=== PATIENT | male | born 1985 | race Caucasian/White ===

== ENCOUNTER 2017-02-20 02:24 | Inpatient (IN) | payer MEDICARE, OTHER ==
[~2017-02-20] VITALS: Ht 182.9 cm; Wt 89.0 kg
[~2017-02-20 02:24] MED LIST: ARIP1TAB12 PO; ARIP400P IM; CHLO100 PO; DEPA250T2 PO; DEPA500T3 PO; DOXE100C4 PO; DOXE25CA2 PO; GEOD80CA PO; PRIL20CA PO; SILV50T TOPICAL; ZYPR20TA PO
[2017-02-20 02:33] VITALS: BP 154/89; PULSE 108; RESP 18; TEMP 98.7; O2SAT 98
[2017-02-20 03:20] LABS: AUTOMATED NEUTROPHIL # 4.6 TH/MM3 (1.8-7.7); BASOPHIL % 0.2 % (0.0-2.0); EOSINOPHIL # 0.2 TH/MM3 (0-0.4); EOSINOPHIL % 2.3 % (0.0-4.0); HEMATOCRIT 31.8 % (39.0-51.0); HEMO FLAGS DIFF FINAL; LYMPH % 36.5 % (9.0-44.0); LYMPHOCYTE # 3.6 TH/MM3 (1.0-4.8); MEAN CELL VOLUME 89.6 FL (80.0-100.0); MEAN CORPUSCULAR HEMOGLOBIN 30.3 PG (27.0-34.0); MEAN CORPUSCULAR HGB CONC 33.8 % (32.0-36.0); MONO % 14.3 % (0.0-8.0); NEUT % 46.7 % (16.0-70.0); PLATELET COUNT 226 TH/MM3 (150-450); RED BLOOD COUNT 3.55 MIL/MM3 (4.50-5.90); RED CELL DISTRIBUTION WIDTH 14.7 % (11.6-17.2); WHITE BLOOD COUNT 9.8 TH/MM3 (4.0-11.0)
[2017-02-20 03:26] LABS: AMPHETAMINE, URINE NEG (NEG); BARBITURATES, URINE NEG (NEG); COCAINE, URINE POS (NEG)
[2017-02-20 03:28] LABS: ANION GAP 7 MEQ/L (5-15); AST (GOT) 38 U/L (15-37); BICARBONATE 25.1 MEQ/L (21.0-32.0); BLOOD UREA NITROGEN 23 MG/DL (7-18); CHLORIDE 112 MEQ/L (98-107); GLOMERULAR FILTRATION RATE 119 ML/MIN (>89); POTASSIUM 3.8 MEQ/L (3.5-5.1); SODIUM (NA) 144 MEQ/L (136-145)
--- NOTE | 2017-02-20 03:31 | PD ---
HPI Chief Complaint: Psychiatric Symptoms Time Seen by Provider: 03:27 Travel History International Travel<30 days: No Contact w/Intl Traveler<30days: No Traveled to known affect area: No History of Present Illness HPI 31-year-old white male presents to emergency department under [place] act by PD. The patient was found wandering out in traffic. The patient was just released 9 days ago from detention. He states that he was admitted for 90 days. He was in [facility]. He states that he has a history of schizoaffective disorder. He has been off his medications. He admits to tobacco, alcohol and drugs. He denies any toxic ingestions. The patient here denies any suicidal homicidal ideation. He states he had moved back to [facility] oriented been living in the past. He just got into town. [facility] Past Medical History Narrative Medical Schizoaffective disorder Anxiety: No Depression: No Cancer: No Cardiovascular Problems: No Diabetes: No Diminished Hearing: No Endocrine: No Genitourinary: No Headaches: No Immune Disorder: No Musculoskeletal: No Neurologic: Yes Psychiatric: Yes (2010 [facility] 10/24/15) Reproductive: No Respiratory: No Schizophrenia: Yes (schizo affective) Seizures: No Tetanus Vaccination: < 5 Years Influenza Vaccination: No Past Surgical History Surgical History: No Previous Surgery Social History Alcohol Use: Yes Tobacco Use: Yes Substance Use: Yes Allergies-Medications (Allergen,Severity, Reaction): Coded Allergies: No Known Allergies (Verified , 02/20/17) Reported Meds & Prescriptions Reported Meds & Active Scripts Active No Active Prescriptions or Reported Medications Review of Systems Except as stated in HPI: all other systems reviewed are Neg General / Constitutional: No: Fever, Chills Eyes: No: Diploplia, Photophobia HENT: No: Headaches, Sore Throat Cardiovascular: No: Chest Pain or Discomfort, Palpitations Respiratory: No: Cough, Shortness of Breath Gastrointestinal: No: Nausea, Vomiting Genitourinary: No: Dysuria, Hematuria Musculoskeletal: No: Myalgias, Arthralgias Skin: No Rash, No Itching Neurologic: No: Headache, Seizures Psychiatric: Positive: Mood Disorder, Substance Abuse, No: Anxiety, Depression , Suicidal Ideations, Disorder of Thought, Homicidal Ideation Physical Exam Narrative GENERAL: Well-nourished, well-developed patient. SKIN: Warm and dry. HEAD: Normocephalic and atraumatic. EYES: No scleral icterus. No injection or drainage. ENT: No nasal drainage noted. Mucous membranes pink. Airway patent. NECK: Supple, trachea midline. Moves head freely without obvious discomfort. CARDIOVASCULAR: Regular rate and rhythm without murmurs, gallops, or rubs. RESPIRATORY: Breath sounds equal bilaterally. No accessory muscle use. GASTROINTESTINAL: Abdomen soft, non-tender, nondistended. EXTREMITIES: No cyanosis or edema. BACK: Nontender without obvious deformity. No CVA tenderness. NEURO: Patient is alert and oriented. no sensorimotor deficits. Nonfocal. Normal speech. PSYCH: No delusions. No auditory or visual hallucinations. Data Data Last Documented VS Vital Signs Date Time Temp Pulse Resp B/P Pulse Ox O2 Delivery O2 Flow Rate FiO2 02/20/17 02:37 20 02/20/17 02:33 98.7 108 154/89 98 Orders Comprehensive Metabolic Panel (02/20/17 02:27) Complete Blood Count With Diff (02/20/17 02:27) Alcohol (Ethanol) (02/20/17 02:27) Drug Screen, Random Urine (02/20/17 02:27) Psych Screen (02/20/17 02:27) Tylenol (Acetaminophen) (02/20/17 02:27) Salicylates (Aspirin) (02/20/17 02:27) Labs Laboratory Tests Test 02/20/17 02:54 White Blood Count 9.8 TH/MM3 Red Blood Count 3.55 MIL/MM3 Hemoglobin 10.8 GM/DL Hematocrit 31.8 % Mean Corpuscular Volume 89.6 FL Mean Corpuscular Hemoglobin 30.3 PG Mean Corpuscular Hemoglobin 33.8 % Concent Red Cell Distribution Width 14.7 % Platelet Count 226 TH/MM3 Mean Platelet Volume 8.0 FL Neutrophils (%) (Auto) 46.7 % Lymphocytes (%) (Auto) 36.5 % Monocytes (%) (Auto) 14.3 % Eosinophils (%) (Auto) 2.3 % Basophils (%) (Auto) 0.2 % Neutrophils # (Auto) 4.6 TH/MM3 Lymphocytes # (Auto) 3.6 TH/MM3 Monocytes # (Auto) 1.4 TH/MM3 Eosinophils # (Auto) 0.2 TH/MM3 Basophils # (Auto) 0.0 TH/MM3 CBC Comment DIFF FINAL Differential Comment Sodium Level 144 MEQ/L Potassium Level 3.8 MEQ/L Chloride Level 112 MEQ/L Carbon Dioxide Level 25.1 MEQ/L Anion Gap 7 MEQ/L Blood Urea Nitrogen 23 MG/DL Creatinine 0.76 MG/DL Estimat Glomerular Filtration 119 ML/MIN Rate Random Glucose 98 MG/DL Calcium Level 9.1 MG/DL Total Bilirubin 0.3 MG/DL Aspartate Amino Transf 38 U/L (AST/SGOT) Alanine Aminotransferase 28 U/L (ALT/SGPT) Alkaline Phosphatase 55 U/L Total Protein 7.1 GM/DL Albumin 4.0 GM/DL Salicylates Level 2.2 MG/DL Urine Opiates Screen NEG Acetaminophen Level LESS THAN 2.0 MCG/ML Urine Barbiturates Screen NEG Urine Amphetamines Screen NEG Urine Benzodiazepines Screen NEG Urine Cocaine Screen POS Urine Cannabinoids Screen POS Ethyl Alcohol Level 3 MG/DL MDM Medical Decision Making Medical Screen Exam Complete: Yes Emergency Medical Condition: Yes Medical Record Reviewed: Yes Interpretation(s) Laboratory Tests Test 02/20/17 02:54 White Blood Count 9.8 TH/MM3 Red Blood Count 3.55 MIL/MM3 Hemoglobin 10.8 GM/DL Hematocrit 31.8 % Mean Corpuscular Volume 89.6 FL Mean Corpuscular Hemoglobin 30.3 PG Mean Corpuscular Hemoglobin 33.8 % Concent Red Cell Distribution Width 14.7 % Platelet Count 226 TH/MM3 Mean Platelet Volume 8.0 FL Neutrophils (%) (Auto) 46.7 % Lymphocytes (%) (Auto) 36.5 % Monocytes (%) (Auto) 14.3 % Eosinophils (%) (Auto) 2.3 % Basophils (%) (Auto) 0.2 % Neutrophils # (Auto) 4.6 TH/MM3 Lymphocytes # (Auto) 3.6 TH/MM3 Monocytes # (Auto) 1.4 TH/MM3 Eosinophils # (Auto) 0.2 TH/MM3 Basophils # (Auto) 0.0 TH/MM3 CBC Comment DIFF FINAL Differential Comment Sodium Level 144 MEQ/L Potassium Level 3.8 MEQ/L Chloride Level 112 MEQ/L Carbon Dioxide Level 25.1 MEQ/L Anion Gap 7 MEQ/L Blood Urea Nitrogen 23 MG/DL Creatinine 0.76 MG/DL Estimat Glomerular Filtration 119 ML/MIN Rate Random Glucose 98 MG/DL Calcium Level 9.1 MG/DL Total Bilirubin 0.3 MG/DL Aspartate Amino Transf 38 U/L (AST/SGOT) Alanine Aminotransferase 28 U/L (ALT/SGPT) Alkaline Phosphatase 55 U/L Total Protein 7.1 GM/DL Albumin 4.0 GM/DL Salicylates Level 2.2 MG/DL Urine Opiates Screen NEG Acetaminophen Level LESS THAN 2.0 MCG/ML Urine Barbiturates Screen NEG Urine Amphetamines Screen NEG Urine Benzodiazepines Screen NEG Urine Cocaine Screen POS Urine Cannabinoids Screen POS Ethyl Alcohol Level 3 MG/DL Differential Diagnosis MDM: High Differential diagnoses: Schizophrenia, schizoaffective disorder, bipolar, anxiety, depression, adjustment reaction, mood disorder NOS, ODD, depressive disorder NOS, dementia, dementia with agitation, psychosis NOS, substance induced mood disorder, intermittent explosive disorder, Asperger syndrome, infection,electrolyte abnormality, malingering. Narrative Course Mental health screening discussed with the patient. Psychiatric screen ordered. The patient is been medically cleared This is schizoaffective disorder, PSA Diagnosis Primary Impression: schizoaffective disorder bipolar type Additional Impression: PSA Scripts No Active Prescriptions or Reported Meds Condition: Anthony Joe Feb 20, 2017 03:31
[2017-02-20 03:34] LABS: ACETAMINOPHEN LESS THAN 2.0 MCG/ML (10.0-30.0); ALKALINE PHOSPHATASE 55 U/L (45-117); ALT (GPT) 28 U/L (12-78); TOTAL BILIRUBIN ADULT 0.3 MG/DL (0.2-1.0)
[2017-02-20 06:26] VITALS: BP 145/88; PULSE 88; RESP 18; TEMP 97.6; O2SAT 98
[2017-02-20] MEDS: REMOVE OLD PATCH T-DERMAL SCH (09:00)
[2017-02-20] MEDS ORDERED: MAGNESIUM HYDROXIDE SUSP 30 ML CUP PO PRN (09:00)
[2017-02-20] MEDS: NICOTINE 21 MG/24 HR PATCH T-DERMAL SCH (09:00)
[2017-02-20] MEDS ORDERED: HALOPERIDOL 5 MG TAB PO PRN (09:00)
[2017-02-20] MEDS: QUEtiapine FUMARATE 100 MG TAB PO SCH ×2 (09:00→20:58)
--- NOTE | 2017-02-20 09:17 | MH ---
cc: DIEGO ORTIZ DATE OF ADMISSION: 02/20/2017 ADMISSION DIAGNOSES 1. Schizoaffective disorder, bipolar type, acute decompensation, F25.0 Rule out component of drug induced psychotic disorder. 2. Polysubstance dependence including cocaine and cannabis, F19.20 LEGAL STATUS: The patient is presently declining voluntary psychiatric admission. Involuntary status. I have initiated a petition and will additionally request health care surrogate and guardian advocate. HISTORY OF PRESENT ILLNESS Mr. Walton is a 31-year-old male with a reported history of schizoaffective disorder who presents to us under a [place] ACT from [facility]'s Office alleging that the patient was found laying and walking in a busy roadway. He advised the officers that he suffers from schizoaffective disorder and had not been taking his medications. Reviewing electronic medical record, I note the patient was admitted under Dr. Wren in October 2015, and he was apparently stabilized on Geodon and Ativan at that time. The patient seen and examined. Chart reviewed. Case discussed with nurse in the J pod. On my examination today, the patient presents with pressured speech. He is quite distractible and impulsive. He is grandiose and mentions for example saying that he has "extraterrestrial IQ." He makes several other grandiose and paranoid statements. He is somewhat medication seeking, in particular for benzodiazepines and says that when he really needs is Seroquel and "yall ain't going to give me this but I need Ativan 2 mg three times a day." He later says that when he really needs is Ativan and cannabis. He has significant loosening of associations. No depressive symptoms noted. He denies audiovisual hallucinations. He denies suicidal or homicidal ideation but it is not clear that he is reliable to contract for safety. The remainder of the psychiatric ROS is negative. PAST PSYCHIATRIC HISTORY Includes a history of schizoaffective disorder and substance use issues. He is not currently under the care of psychiatrist. He was admitted most recently reportedly in 2012, but the patient does have a history here of admission and 2014. He denies a history of suicide attempts. He says that he has done best on Seroquel 300 mg in the morning and 400 mg at bedtime along with the Ativan that he was asking for. FAMILY HISTORY Mother reportedly has bipolar disorder. CHEMICAL DEPENDENCY HISTORY: The patient minimizes his substance use. He insists that all that he does is smoke cannabis and that we would only find "faint signs" of cocaine in his urine. His toxicology was indeed positive for cocaine and cannabinoids. SOCIAL HISTORY The patient lives in [place]. He reports that [facility], reportedly on attempted murder charges and burglary of an unoccupied dwelling, but review of the [facility] [employer] [facility] [employer] does not indicate any such charges, he does have a history of misdemeanor charges. He is reportedly single with two daughters. Denies any history. GED level of education. No reported access to guns or firearms. PAST MEDICAL HISTORY The patient denies any medical issues. REVIEW OF SYSTEMS No reported headache, vision or hearing changes, chest pain, shortness of breath, bowel or bladder issues. No other physical complaints. ROS is somewhat limited because of the patient's degree of psychiatric decompensation. PHYSICAL EXAMINATION VITAL SIGNS: Temperature is 97.6, pulse 88, respirations 18, blood pressure 145/88, pulse oximetry 98% on room air. PSYCHIATRIC EXAM: Physical examination completed by the emergency department provider, on my examination today the patient appears to be in no acute physical distress. No signs of withdrawal noted. No motor abnormalities noted, although the patient is quite psychomotor agitated. LABORATORY Reviewed; CBC is significant for a mild anemia with hemoglobin at 10.8. CMP is significant only for mild transaminitis with an AST of 38. Toxicology positive for cocaine and cannabinoids as I said. Alcohol level undetectable. MENTAL STATUS EXAM The patient is in hospital gown. He is somewhat disheveled but appears to be maintaining basic hygiene. He is awake, alert and oriented to person and hospital at least. No motor abnormalities noted, although the patient is somewhat psychomotor agitated. Speech is pressured and rambling. Language and fund of knowledge were difficult to assess because of his degree of psychiatric impairment. Mood is elevated and affect is expansive. Thought process disorganized with significant loosening of associations. Grandiose delusions are present. Possibly some paranoid delusions. Denies audiovisual hallucinations. Denies suicidal or homicidal ideation, but it is not clear that he is reliable to contract for safety. Insight and judgment presently poor. ASSESSMENT/PLAN This is a 31-year-old male with psychiatric history as detailed above who presents under a [place] ACT. On my examination today, the patient presents as floridly manic with psychotic features in the setting of schizoaffective disorder. He is apparently unmediated. The patient requires psychiatric admission at this time for safety, observation and stabilization. Admit inpatient. Involuntary status. I have completed first opinion. Consult for second opinion. Request health care surrogate and guardian advocate. I will initiate Seroquel for mood stabilization as the patient reports a good history of response to this medication. Haldol as needed for agitation, Atarax as needed for anxiety, Benadryl as needed for sleep or EPS. Vitals every shift. Counselor to see and obtain collateral. Disposition planning. Estimated length of stay: 7-10 days. Diego Stark /8:46 AM /9:07 AM ZULMA
[2017-02-20 10:50] VITALS: BP 129/71; PULSE 91; RESP 18; TEMP 97.6; O2SAT 98
[2017-02-20] MEDS: hydrOXYzine HCL 50 MG TAB PO PRN ×2 (12:15→21:01)
[2017-02-20] MEDS: diphenhydrAMINE HCL 50 MG CAP PO PRN (22:45)
[2017-02-20] MEDS: ACETAMINOPHEN 325 MG TAB PO PRN (22:45)
[2017-02-21] MEDS: diphenhydrAMINE HCL 50 MG/ML VIAL IM PRN (00:12)
[2017-02-21] MEDS: HALOPERIDOL LACTATE 5 MG/ML AMP IM PRN (00:12)
[2017-02-21 05:53] VITALS: BP 134/75; PULSE 90; RESP 17; TEMP 98.3; O2SAT 98
[2017-02-21] MEDS: ACETAMINOPHEN 325 MG TAB PO PRN (05:56)
[2017-02-21 07:39] LABS: ANION GAP 6 MEQ/L (5-15); BICARBONATE 28.9 MEQ/L (21.0-32.0); BLOOD UREA NITROGEN 14 MG/DL (7-18); CHLORIDE 111 MEQ/L (98-107); GLOMERULAR FILTRATION RATE 140 ML/MIN (>89); POTASSIUM 4.3 MEQ/L (3.5-5.1); SODIUM (NA) 146 MEQ/L (136-145)
[2017-02-21 07:41] LABS: HDL CHOLESTEROL 53.1 MG/DL (40.0-60.0); LDL CHOLESTEROL 57 MG/DL (0-99)
[2017-02-21] MEDS: NICOTINE 21 MG/24 HR PATCH T-DERMAL SCH (07:49)
[2017-02-21] MEDS: hydrOXYzine HCL 50 MG TAB PO PRN ×2 (07:49→19:14)
[2017-02-21] MEDS: QUEtiapine FUMARATE 100 MG TAB PO SCH ×2 (07:49→20:16)
[2017-02-21] MEDS: REMOVE OLD PATCH T-DERMAL SCH (09:00)
[2017-02-21 11:22] LABS: HEMOGLOBIN A1b 1.6 %; HEMOGLOBIN Ao 85.5 %; HEMOGLOBIN LA1C 1.8 %; HEMOGLOBIN P3 3.6 %
--- NOTE | 2017-02-21 13:01 | PD.CONS ---
Provisional Diagnosis Admission Date Feb 20, 2017 at 08:42 [place]. Schizoaffective Disorder, Bipolar Type Polysubstance dependence History of Present Illness Service Psychiatry Consult Requested By Psychiatry Reason for Consult 2nd opinion Primary Care Physician Unknown HPI Pt is a 31 YOWM with a hx of schizoaffective disorder bipolar type and polysubstance dependence who was [place] [facility] [place] out by [facility] alleging that pt was found walking into traffic and laying down on a busy roadway. Pt was seen and discussed with event staff member and chart reviewed. Since admission, by has been intrusive and agitated, with very poor impulse control. He has been making sexually inappropriate comments to peers and staff and requires frequent redirection for safety. During interview pt licks lips suggestively towards MD and intrudes on personal space. He is noted to have very pressured speech with FOI. He gives hx of previous psychiatric tx and diagnoses and reports that he has had a good response to seroquel in the past, but states "I'm going to need more because I'm still up there!" He insists on discharge today from hospital but states that he is willing to take medication. RN states that pt has actually improved with today compared to his mental status on admission yesterday. He appears to be responding to internal stimuli and makes paranoid statements about the government. Review of Systems Psychiatric: COMPLAINS OF: Mood changes, Agitation Past Family Social History Coded Allergies: No Known Allergies (Verified , 02/20/17) Past Medical History denies medical problems. Discontinued Reported Medications Omeprazole 20 mg (Prilosec 20 mg)20 Mg Cap20 Mg PO DAILY 04/30/15 Doxepin 100 mg 100 Mg [id number] Mg PO HS 04/30/15 Divalproex Sodium 250 mg (Depakote 250 mg)250 Mg Tab4 Tab PO BID 04/30/15 Olanzapine (Zyprexa)20 Mg Tab20 Mg PO DAILY 04/30/15 Chlorpromazine Hcl (Thorazine 100 Mg Tab)100 Mg [id number] Mg PO TID 04/30/15 Discontinued Scripts Aripiprazole (Abilify Maintena Pre-filled DCS)400 Mg [id number] Mg IM q 28d #1 INJECTION Ref 0 *For intramuscular use only* Prov:Jaden Wren MD 11/11/15 Silver Sulfadiazine (Ssd)50 Applic/50 Gm Cr1 Applic TOPICAL Q12HR #1 TUBE Ref 0 Prov:Jaden Wren MD 11/11/15 Ziprasidone Hcl (Geodon)80 Mg [id number] Mg PO 3 at bedtime #90 CAP Ref 0 Prov:Jaden Wren MD 11/11/15 Aripiprazole 10 Mg Tab10 Mg PO DAILY@08,18 #60 TAB Ref 0 Prov:Jaden Wren MD 11/11/15 Divalproex ER 500 mg (Depakote ER 500 mg)500 Mg Taber1,000 Mg PO BID 5 Days Prov:Cosme Glover MD 04/30/15 Chlorpromazine Hcl (Thorazine 100 Mg Tab)100 Mg [id number] Mg PO TID 5 Days Prov:Cosme Glover MD 04/30/15 Doxepin 25 mg 25 Mg Cap25 Mg PO HS 5 Days Prov:Cosme Glover MD 04/30/15 Olanzapine (Zyprexa)20 Mg Tab20 Mg PO DAILY 5 Days Prov:Cosme Glover MD 04/30/15 Current Medications Medications (Trade) Dose Ordered Sig/Dayanna Route Start Time Stop Time Status Last Admin (Benadryl) 50 mg Q6H PRN PO 02/20/17 09:00 (Benadryl Inj) 50 mg Q6H PRN IM 02/20/17 09:00 02/21/17 00:12 (Benadryl) 50 mg HS PRN PO 02/20/17 09:00 02/20/17 22:45 (Tylenol) 650 mg Q4H PRN PO 02/20/17 09:00 02/21/17 05:56 (Milk Of Magnesia Liq) 30 ml DAILY PRN PO 02/20/17 09:00 (Mag-Al Plus Susp Liq) 30 ml Q6H PRN PO 02/20/17 09:00 (Habitrol 21 Mg Patch.24 Hr) 1 patch DAILY T-DERMAL 02/20/17 09:00 02/21/17 07:49 (Atarax) 50 mg Q6H PRN PO 02/20/17 09:00 02/21/17 07:49 Miscellaneous Information 1 DAILY T-DERMAL 02/20/17 09:00 02/20/17 09:00 (SEROquel) 150 mg Taper BID PO 02/20/17 09:00 03/05/17 08:59 02/21/17 07:49 (Haldol) 5 mg Q6H PRN PO 02/20/17 09:00 02/20/17 09:37 (Haldol Inj) 5 mg Q6H PRN IM 02/20/17 09:00 02/21/17 00:12 Family History denies family hx of psychiatric illness Social History Father of two daughters. Single. Reports released from skilled nursing 9 days ago. Patient's Strengths (min. 2) Agreeable to medication treatment. Verbal Physical Exam Vital Signs Vital Signs Date Time Temp Pulse Resp B/P Pulse Ox O2 Delivery O2 Flow Rate FiO2 02/21/17 05:53 98.3 90 17 134/75 98 02/20/17 06:26 Room Air Mental Status Examination Appearance disheveled Speech: Pressured Orientation: x3 Memory: Unremarkable Thought Process: Flight of Ideas Thought Content: Paranoid, Other (hypersexual) Hallucination Type: Auditory Attention and Concentration: Easily Distracted Suicidal Ideation: No Homicidal Ideation: No Insight: Poor Judgement: Impulsive Affect if Inappropriate: Labile Mood: Manic Motor Activity: Normal gait Assessment & Plan Problem List: (1) schizoaffective disorder bipolar type (2) Polysubstance dependence ICD Code: F19.20 Assessment & Plan I agree that pt meets BA criteria. 2nd opinion paperwork completed. Continue seroquel titration. Estimated LOS: Erica Lara MD Feb 21, 2017 13:01
[2017-02-21 18:32] VITALS: BP 115/69; PULSE 84; RESP 16; TEMP 97.6; O2SAT 98
[2017-02-21] MEDS: ALUMINUM/MAGNESIUM/SIMETH 30 ML CUP PO PRN (19:27)
[2017-02-22] MEDS: hydrOXYzine HCL 50 MG TAB PO PRN ×2 (05:36→19:42)
[2017-02-22 05:56] VITALS: BP 142/85; PULSE 81; RESP 18; O2SAT 96
[2017-02-22] MEDS: diphenhydrAMINE HCL 50 MG/ML VIAL IM PRN ×2 (07:45→17:15)
[2017-02-22] MEDS: HALOPERIDOL LACTATE 5 MG/ML AMP IM PRN (07:45)
[2017-02-22] MEDS: QUEtiapine FUMARATE 100 MG TAB PO SCH (08:43)
[2017-02-22] MEDS: REMOVE OLD PATCH T-DERMAL SCH (08:43)
[2017-02-22] MEDS: NICOTINE 21 MG/24 HR PATCH T-DERMAL SCH (08:44)
[2017-02-22] MEDS ORDERED: ZIPRASIDONE MESYLATE 20 MG VIAL IM STA (10:17)
[2017-02-22] MEDS ORDERED: ZIPRASIDONE MESYLATE 20 MG VIAL IM ONE (10:21)
[2017-02-22] MEDS ORDERED: LORazepam 2 MG/ML VIAL ONE (10:22)
--- NOTE | 2017-02-22 10:44 | HHI.PYPN ---
Subjective Remarks Patient seen and examined. Chart reviewed. Case discussed with nursing staff. Patient was significantly behaviorally disturbed through the remainder of the weekend. He received Haldol PRN this morning. On my examination today, patient is disinhibited, distractible, impulsive, intrusive and demanding. He demands immediate gratification, e.g. for replacing nicotine patch with gum. Disrespectful of staff and peers; I am a "dumb ass cracker." Speech is rambling , pressured. Denies side effects from medications. Shortly after I left the unit, I returned in response to an "all male staff" call in response to this patient. Per RN, patient punched the wall and was pounding on nursing station glass because he did not immediately receive some trifle. He remains at high risk for ongoing violence and requires restraints for safety. I have evaluated him [id number] within 1 hour as required. I have ordered him medicated with Geodon 20mg, Ativan 2mg, Benadryl 50mg IM Stat. I have also checked a Stat XRay of the hand. Call to the RN later: Geodon seems more efficacious than Haldol at controlling patient's agitation. Review of Systems ROS Limitations: Poor Historian Except as stated in HPI: all other systems reviewed are Neg Objective Alert: Yes [place]: Person, Place (at least) Mood: Agitated, Angry Affect: Labile Memory Intact: Comment (Not formally assessed) Hallucinations: Other (Remains int stim) Delusions: Yes Delusion Type: Paranoid Suicidal: Ideation (No SI) Homicidal: Ideation (No HI but aggressive) Insight/Judgement Very poor Remarks No motor abnormalities noted. Thought process disorganized with loosening of associations. Speech rambling. Grooming and hygiene poor. Labs Labs reviewed. Last Impressions Hand X-Ray 02/22/17 0000 Signed Impressions: Service Date/Time: Wednesday, February 22, 2017 11:18 - CONCLUSION: Unremarkable limited examination of the right hand. Jaden Trinh MD Vitals/IOs Vital Signs Date Time Temp Pulse Resp B/P Pulse Ox O2 Delivery O2 Flow Rate FiO2 02/22/17 05:56 81 18 142/85 96 02/21/17 18:32 97.6 02/20/17 06:26 Room Air Assessment & Plan Problem List: (1) Schizoaffective disorder, bipolar type ICD Code: F25.0 (2) Polysubstance dependence ICD Code: F19.20 Assessment & Plan Titrate Seroquel to 300mg BID for psychosis. Given ongoing issues with impulsive aggression and mood instability, I will orally load with Depakote ER 25mg/kg x 85.3kg ~= 2000mg qHS. LFT and Plt ok. Check a level after appropriate interval. D/c restraints once safe to do so. Continue other medications and care as ordered. Justification for Cont. Inpt. Impairment in safety. Impairment in reality construction. Impairment in social function. Medication changes. Very high risk for decompensation pending psychiatric stabilization. Discharge Planning Pending psychiatric stabilization. Diego Portillo MD Feb 22, 2017 10:44
[2017-02-22] MEDS ORDERED: diphenhydrAMINE HCL 50 MG/ML VIAL IM ONE (11:00)
[2017-02-22] MEDS ORDERED: LORazepam 2 MG/ML VIAL IM ONE (11:00)
--- NOTE | 2017-02-22 12:09 | RADRPT ---
EXAM DATE/TIME: 02/22/2017 11:18 [place] COMPARISON: No previous studies available for comparison. INDICATIONS : Right hand pain after punching a window. MEDICAL HISTORY : Schizophrenia SURGICAL HISTORY : None. ENCOUNTER: Initial ACUITY: 1 day PAIN SCORE: Non-responsive. LOCATION: Right hand FINDINGS: Two view examination of the right hand demonstrates no soft tissue swelling, dislocation, or fracture . The joint spaces are maintained. Bony mineralization is normal. CONCLUSION: Unremarkable limited examination of the right hand. Jaden Trinh MD on February 22, 2017 at 12:07 Board Certified Radiologist. This report was verified electronically.
[2017-02-22] MEDS: ZIPRASIDONE MESYLATE 20 MG VIAL IM PRN (17:14)
[2017-02-22 18:00] VITALS: BP 132/74; PULSE 84; RESP 18; TEMP 98.6; O2SAT 99
[2017-02-22] MEDS: QUEtiapine FUMARATE 300 MG TAB PO SCH (20:24)
[2017-02-22] MEDS: DIVALPROEX SODIUM E.R. 500 MG TAB PO SCH (20:24)
[2017-02-22] MEDS: NICOTINE 4 MG/GUM CHEW PRN ×2 (20:53→21:55)
[2017-02-22] MEDS: diphenhydrAMINE HCL 50 MG CAP PO PRN (22:54)
[2017-02-23] MEDS: NICOTINE 4 MG/GUM CHEW PRN ×5 (06:00→20:03)
[2017-02-23 06:07] VITALS: BP 149/87; PULSE 101; RESP 18; TEMP 97.2; O2SAT 95
[2017-02-23] MEDS: hydrOXYzine HCL 50 MG TAB PO PRN ×3 (06:28→22:04)
[2017-02-23] MEDS: QUEtiapine FUMARATE 300 MG TAB PO SCH ×2 (08:34→20:03)
[2017-02-23] MEDS: diphenhydrAMINE HCL 50 MG CAP PO PRN ×3 (08:34→21:10)
[2017-02-23] MEDS ORDERED: QUEtiapine FUMARATE 100 MG TAB PO ONE (10:00)
--- NOTE | 2017-02-23 12:10 | HHI.PYPN ---
Subjective Remarks Patient seen and examined with nurse. Chart reviewed. Patient required a Geodon PRN yesterday afternoon. Case discussed in treatment team with nurse, counselor and occupational therapist. Per nursing staff, patient has poor boundaries, requires immediate gratification, is sexually inappropriate at times and difficult to redirect. I have asked the counselor to try to obtain collateral to determine what patient's baseline level of function is like. On my examination today, patient is intrusive, demanding, and impulsive. Affect is silly and glib. Thought process disorganized and rambling. He has produced a proposed medication list, which includes "Wellbutrin, Ativan, Ser[o]quel, Zyprexa, Haldol and Thorzell [Thorazine]." We discuss his list and settle on adding Thorazine and other med changes as noted below. He says he has done well with "old school" medications like Thorazine. He also produced a series of acrostics, noting that he is a "PIMP," which stands for, "Plug intercom money play." Unclear what this means. Denies side effects from meds. Review of Systems ROS Limitations: Psychotic, Poor Historian Except as stated in HPI: all other systems reviewed are Neg Objective Alert: Yes [place]: Person, Place Mood: Other (Elevated) Affect: Other (silly) Memory Intact: Comment (Not formally assessed) Hallucinations: Other (Internally preoccupied) Delusions: Yes Delusion Type: Grandiose, Paranoid Suicidal: Ideation (No SI) Homicidal: Ideation (No HI) Insight/Judgement Poor Remarks Patient is hyperkinetic but no other motor abnormalities are noted. Thought process disorganized. Speech rambling and pressured. Grooming and hygiene poor. Labs Labs reviewed. No new labs. Vitals/IOs Vital Signs Date Time Temp Pulse Resp B/P Pulse Ox O2 Delivery O2 Flow Rate FiO2 02/23/17 06:07 97.2 101 18 149/87 95 02/20/17 06:26 Room Air Assessment & Plan Problem List: (1) Schizoaffective disorder, bipolar type ICD Code: F25.0 (2) Polysubstance dependence ICD Code: F19.20 Assessment & Plan Add Thorazine per patient preference: 100 mg 3 times daily with plans to titrate to effect and as tolerated. Keep HS Seroquel but discontinue morning dose. We could eventually discontinue the nighttime Seroquel and replace it with additional Thorazine if appropriate. Continue Depakote as ordered. Depakote level ordered. Sexual precautions. Continue to monitor on the high acuity unit. Continue other medications and care as ordered. Justification for Cont. Inpt. Impairment in self-care. Impairment in social functioning. Impairment in reality construction. Medication changes in process. Risk for decompensation in a less restrictive environment. Discharge Planning Pending psychiatric stabilization. I have asked the counselor to try to get a better sense of what patient's home situation is like. Request HC Surrog/Guard Advoc?: Yes Diego Portillo MD Feb 23, 2017 12:10
[2017-02-23 17:38] VITALS: BP 151/76; PULSE 107; RESP 18; TEMP 97.3; O2SAT 97
[2017-02-23] MEDS: DIVALPROEX SODIUM E.R. 500 MG TAB PO SCH (20:22)
[2017-02-24] MEDS: ZIPRASIDONE MESYLATE 20 MG VIAL IM PRN (01:11)
[2017-02-24] MEDS: diphenhydrAMINE HCL 50 MG/ML VIAL IM PRN (01:11)
[2017-02-24] MEDS: hydrOXYzine HCL 50 MG TAB PO PRN ×3 (05:26→18:19)
[2017-02-24] MEDS: ALUMINUM/MAGNESIUM/SIMETH 30 ML CUP PO PRN ×2 (06:10→22:31)
[2017-02-24 06:11] VITALS: BP 119/67; PULSE 97; RESP 18; TEMP 97.6; O2SAT 97
[2017-02-24] MEDS: diphenhydrAMINE HCL 50 MG CAP PO PRN ×4 (08:08→21:52)
--- NOTE | 2017-02-24 11:31 | HHI.PYPN ---
Subjective Remarks Patient seen and examined. Chart reviewed. Case discussed with nursing staff. Patient received an ETO overnight for agitation. 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 He denies any SI, HI or AVH. He remains intrusive and disinhibited but is less irritable and demanding. Denies side effects from psychotropics except he says that they are making him hungry. Review of Systems ROS Limitations: Psychotic, Poor Historian Except as stated in HPI: all other systems reviewed are Neg Objective Alert: Yes [place]: Person, Place Mood: Other (remains somewhat elevated) Affect: Other (expansive) Memory Intact: Comment (Not formally assessed) Hallucinations: Other (remains internally stimulated) Delusions: Yes Delusion Type: Grandiose, Paranoid Suicidal: Ideation (No SI) Homicidal: Ideation (No HI) Insight/Judgement Poor Remarks No motor abnormalities noted. Thought process with loosening of associations. Speech rambling. Grooming and hygiene fair at best. Labs Labs reviewed. Vitals/IOs Vital Signs Date Time Temp Pulse Resp B/P Pulse Ox O2 Delivery O2 Flow Rate FiO2 02/24/17 06:11 97.6 97 18 119/67 97 Assessment & Plan Problem List: (1) Schizoaffective disorder, bipolar type ICD Code: F25.0 (2) Polysubstance dependence ICD Code: F19.20 Assessment & Plan Titrate Thorazine to 150 mg 3 times daily. Continue Seroquel at bedtime. Continue loading with 2 g of Depakote at bedtime. I will check a predose Depakote level tomorrow evening. Continue to monitor on the inpatient unit. Continue other medications and care as ordered. Justification for Cont. Inpt. Impairment in reality construction. Impairment in social functioning. Medication changes in process. Risk for decompensation pending psychiatric stabilization. Discharge Planning Pending psychiatric stabilization. Request HC Surrog/Guard Advoc?: Yes Diego Portillo MD Feb 24, 2017 11:31
[2017-02-24] MEDS ORDERED: PILL SPLITTER OTHER PRN (11:45)
[2017-02-24] MEDS: NICOTINE 4 MG/GUM CHEW PRN ×2 (16:37→20:17)
[2017-02-24 17:56] VITALS: BP 138/63; PULSE 110; RESP 18; TEMP 97.5; O2SAT 97
[2017-02-24] MEDS: DIVALPROEX SODIUM E.R. 500 MG TAB PO SCH (20:16)
[2017-02-24] MEDS: QUEtiapine FUMARATE 300 MG TAB PO SCH (20:17)
[2017-02-24] MEDS: ACETAMINOPHEN 325 MG TAB PO PRN (20:18)
[2017-02-25] MEDS: hydrOXYzine HCL 50 MG TAB PO PRN ×3 (00:07→15:11)
[2017-02-25] MEDS: diphenhydrAMINE HCL 50 MG CAP PO PRN (04:27)
[2017-02-25] MEDS: NICOTINE 4 MG/GUM CHEW PRN ×4 (04:42→20:00)
--- NOTE | 2017-02-25 12:09 | HHI.PYPN ---
Subjective Remarks Patient seen and examined with counselor and nurse. Chart reviewed. Case discussed with nursing staff who reports patient remains disorganized and intrusive. On my examination today, the patient is somewhat discharge focused. He remains scattered and disorganized, although there are some signs of improvement in his thought disorder. He does indeed remain intrusive. Affect is superficial and somewhat glib. He requests that his Atarax be titrated to 100 mg per dose. Denies side effects from medications. Review of Systems Except as stated in HPI: all other systems reviewed are Neg Objective Alert: Yes [place]: Person, Place Mood: Other (mildly elevated) Affect: Other (superficial) Memory Intact: Comment (Not formally assessed) Hallucinations: Other (less internally preoccupied) Delusions: Yes Delusion Type: Grandiose (mild), Paranoid (mild) Suicidal: Ideation (No SI) Homicidal: Ideation (No HI) Insight/Judgement Poor Remarks No motor abnormalities noted. No signs of Depakote toxicity. Grooming and hygiene fair. Speech somewhat pressured and rambling. Labs Labs reviewed. EKG was sinus tach with a QTC of 416 ms. Vitals/IOs Vital Signs Date Time Temp Pulse Resp B/P Pulse Ox O2 Delivery O2 Flow Rate FiO2 02/24/17 17:56 97.5 110 18 138/63 97 Assessment & Plan Problem List: (1) Schizoaffective disorder, bipolar type ICD Code: F25.0 (2) Polysubstance dependence ICD Code: F19.20 Assessment & Plan I have been orally loading Depakote at a dose of 2g qHS. I will check a pre- dose Depakote and ammonia level this evening with plans to adjust dose based on level. No signs of Depakote toxicity at this time. Titrate Thorazine to 200 mg 3 times daily to target psychosis. Titrate Atarax to 100 mg every 6 hours as needed for anxiety. Continue Seroquel 300 mg at bedtime as ordered, although my long-term goal is to discontinue this medication by adjusting the Thorazine to place most of the dose at night for help with sleep. Patient's case was presented to the [place] act court and the case was placed and continuance for a period of 2 weeks. Justification for Cont. Inpt. Impairment in reality construction. Impairment in social functioning. Medication changes in process. Risk for decompensation pending psychiatric stabilization. Discharge Planning Pending psychiatric stabilization. I anticipate the patient may be adequately stabilized for discharge by the beginning or middle of next week. Request HC Surrog/Guard Advoc?: Yes Diego Portillo MD Feb 25, 2017 12:09
--- NOTE | 2017-02-25 12:42 | EKG ---
Date Performed: 02/25/2017 Time Performed: 11:16:06 PTAGE: 31 years EKG: SINUS TACHYCARDIA ABNORMAL RHYTHM ECG PREVIOUS TRACING : 04/30/2015 00.44 \1 DOCTOR: Amador Mora Interpretating Date/Time 02/25/2017 12:39:58
[2017-02-25 18:00] VITALS: BP 122/66; PULSE 110; RESP 18; TEMP 97.7; O2SAT 99
[2017-02-25] MEDS: QUEtiapine FUMARATE 300 MG TAB PO SCH (20:00)
[2017-02-25] MEDS: DIVALPROEX SODIUM E.R. 500 MG TAB PO SCH (20:36)
[2017-02-26] MEDS: hydrOXYzine HCL 50 MG TAB PO PRN ×3 (00:50→15:33)
[2017-02-26] MEDS: diphenhydrAMINE HCL 50 MG CAP PO PRN (00:50)
[2017-02-26] MEDS: ACETAMINOPHEN 325 MG TAB PO PRN (02:55)
[2017-02-26] MEDS: NICOTINE 4 MG/GUM CHEW PRN ×4 (04:43→13:47)
[2017-02-26 05:52] VITALS: BP 126/71; PULSE 107; RESP 18; TEMP 97.1; O2SAT 98
--- NOTE | 2017-02-26 11:42 | HHI.PYPN ---
Subjective Remarks Patient remains impulsive, intrusive and disorganized in both thought and speech. He is requesting discharge but does not have insight or judgment to improve his behavior at this time. Review of Systems ROS Limitations: Clinical Condition Objective Alert: Yes [place]: Person, Place Mood: Agitated, Other (mildly elevated) Affect: Other (superficial) Memory Intact: Comment (Not formally assessed) Hallucinations: Other (less internally preoccupied) Delusions: Yes Delusion Type: Grandiose (mild), Paranoid (mild) Suicidal: Ideation (No SI) Homicidal: Ideation (No HI) Insight/Judgment Impaired. Labs Test 02/25/17 14:01 Ammonia 57 MCMOL/L Valproic Acid (Depakene) Level 88 MCG/ML Vitals/IOs Vital Signs Date Time Temp Pulse Resp B/P Pulse Ox O2 Delivery O2 Flow Rate FiO2 02/26/17 05:52 97.1 107 18 126/71 98 Assessment & Plan Problem List: (1) Schizoaffective disorder, bipolar type ICD Code: F25.0 (2) Polysubstance dependence ICD Code: F19.20 Assessment & Plan Estimated LOS: 5 days patient needs more time on medication to hopefully improve chances for stability. Justification for Cont. Inpt. Patient is unable to care for himself and antagonizes others to harm him. Request HC Surrog/Guard Advoc?: Yes Jamal Mckenzie MD Feb 26, 2017 11:42
[2017-02-26 19:00] VITALS: BP 121/61; PULSE 106; RESP 18; TEMP 98.2; O2SAT 97
[2017-02-26] MEDS: DIVALPROEX SODIUM E.R. 500 MG TAB PO SCH (20:40)
[2017-02-26] MEDS: QUEtiapine FUMARATE 300 MG TAB PO SCH (20:40)
[2017-02-27] MEDS: ACETAMINOPHEN 325 MG TAB PO PRN (05:14)
[2017-02-27 06:00] VITALS: BP 138/73; PULSE 100; RESP 20; TEMP 98; O2SAT 97
[2017-02-27] MEDS: NICOTINE 4 MG/GUM CHEW PRN ×3 (06:23→22:36)
[2017-02-27] MEDS: hydrOXYzine HCL 50 MG TAB PO PRN ×3 (08:28→22:56)
[2017-02-27] MEDS: diphenhydrAMINE HCL 50 MG CAP PO PRN (10:02)
[2017-02-27 17:00] VITALS: BP 126/70; PULSE 102; RESP 19; TEMP 97.5; O2SAT 98
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
[2017-02-27] MEDS: BACITRACIN TOP OINT 15 GM TUBE TOPICAL SCH (21:00)
[2017-02-27] MEDS: DIVALPROEX SODIUM E.R. 500 MG TAB PO SCH (22:56)
[2017-02-27] MEDS: QUEtiapine FUMARATE 300 MG TAB PO SCH (22:56)
[2017-02-28] MEDS: diphenhydrAMINE HCL 50 MG/ML VIAL IM PRN (00:47)
[2017-02-28 05:49] VITALS: BP 117/66; PULSE 108; RESP 17; TEMP 97.3; O2SAT 100
[2017-02-28] MEDS: BACITRACIN TOP OINT 15 GM TUBE TOPICAL SCH ×2 (08:24→21:00)
[2017-02-28] MEDS: hydrOXYzine HCL 50 MG TAB PO PRN ×3 (09:40→23:15)
[2017-02-28] MEDS: NICOTINE 4 MG/GUM CHEW PRN ×2 (09:41→13:45)
[2017-02-28] MEDS: ACETAMINOPHEN 325 MG TAB PO PRN (13:45)
[2017-02-28] MEDS: diphenhydrAMINE HCL 50 MG CAP PO PRN ×2 (14:33→20:16)
--- NOTE | 2017-02-28 19:40 | HHI.PYPN ---
Subjective Remarks Patient was seen and case discussed with nursing. Per nursing patient has been demanding and intrusive. Rude to the staff at night. During my interview is pleasant and minimizing his behavior. Said he had a productive visit with his mom spoke to his daughter. Mood is "feeling good." Compliant with medications Objective Alert: Yes [place]: Person, Place Mood: Oppositional Affect: Other (superficial) Memory Intact: Comment (Not formally assessed) Hallucinations: Other (less internally preoccupied) Delusions: Yes Delusion Type: Other (none elicited today) Suicidal: Ideation (No SI) Homicidal: Ideation (No HI) Insight/Judgment Poor Vitals/IOs Vital Signs Date Time Temp Pulse Resp B/P Pulse Ox O2 Delivery O2 Flow Rate FiO2 02/28/17 05:49 97.3 108 17 117/66 100 Assessment & Plan Problem List: (1) Schizoaffective disorder, bipolar type ICD Code: F25.0 (2) Polysubstance dependence ICD Code: F19.20 Assessment & Plan Continue current treatment plan Justification for Cont. Inpt. Patient will decompensate in a less restrictive setting Request HC Surrog/Guard Advoc?: Yes Amari Rosario DO Feb 28, 2017 19:40
[2017-02-28] MEDS: DIVALPROEX SODIUM E.R. 500 MG TAB PO SCH (20:15)
[2017-02-28] MEDS: QUEtiapine FUMARATE 300 MG TAB PO SCH (20:16)
[2017-03-01] MEDS: ALUMINUM/MAGNESIUM/SIMETH 30 ML CUP PO PRN ×2 (04:21→05:42)
[2017-03-01 06:17] VITALS: BP 119/59; PULSE 110; RESP 16; TEMP 97.4; O2SAT 100
[2017-03-01] MEDS: hydrOXYzine HCL 50 MG TAB PO PRN (08:58)
[2017-03-01] MEDS: BACITRACIN TOP OINT 15 GM TUBE TOPICAL SCH (09:00)
[2017-03-01] MEDS ORDERED: HYDR50TA94 PO (10:52)
[2017-03-01] MEDS ORDERED: CHLO100T2 PO (10:52)
[2017-03-01] MEDS ORDERED: DEPA500T3 PO (10:52)
[2017-03-01] MEDS ORDERED: QUET1TAB10 PO (10:52)
--- NOTE | 2017-03-01 10:53 | HHI.DS ---
Psychiatry Discharge Summary Inpatient Psychiatric care?: Yes Advance Directive: No Reason Not Provided: patient declined Mental Health AdvanceDirective: No Health Care Proxy: No Admission Admission Date Feb 20, 2017 at 08:42 Admission Diagnosis: (1) Schizoaffective disorder, bipolar type ICD Code: F25.0 (2) Polysubstance dependence ICD Code: F19.20 Brief History Mr. Walton is a 31-year-old male with a reported history of schizoaffective disorder who presents to us under a [place] ACT from [facility]'s Office alleging that the patient was found laying and walking in a busy roadway. He advised the officers that he suffers from schizoaffective disorder and had not been taking his medications. Reviewing electronic medical record, I note the patient was admitted under Dr. Wren in October 2015, and he was apparently stabilized on Geodon and Ativan at that time. The patient seen and examined. Chart reviewed. Case discussed with nurse in the J pod. On my examination today, the patient presents with pressured speech. He is quite distractible and impulsive. He is grandiose and mentions for example saying that he has "extraterrestrial IQ." He makes several other grandiose and paranoid statements. He is somewhat medication seeking, in particular for benzodiazepines and says that when he really needs is Seroquel and "yall ain't going to give me this but I need Ativan 2 mg three times a day." He later says that when he really needs is Ativan and cannabis. He has significant loosening of associations. No depressive symptoms noted. He denies audiovisual hallucinations. He denies suicidal or homicidal ideation but it is not clear that he is reliable to contract for safety. The remainder of the psychiatric ROS is negative. Tobacco Use In Past 30 Days: 5 or More Cigarettes/Day Alcohol Use: 4 or More Times Per Week Hospital Course Patient was admitted to a locked, inpatient psychiatric unit. Appropriate precautions were in place throughout patient's hospital stay. Patient was seen and examined daily on the unit by psychiatry and also visited by counselor. Medications were adjusted. Patient tolerated medications well without side effects. Patient had improvement in his presenting psychiatric symptomatology during the course of his hospital stay. Behavior improved with the benefit of psychopharmacologic treatment. There is no evidence of any overt suicidality or homicidality on the inpatient unit. Patient was noted to require immediate gratification and acted out in a behavioral fashion at times if he didn't receive it. He was compliant with medications. On the day of discharge: Patient seen and examined with counselor and nurse. Chart reviewed. Case discussed with nursing staff reports patient's behavior is improved and he has been no behavioral problem overnight. On my examination today, the patient is requesting discharge from the inpatient psychiatric unit. He feels that his mood has stabilized, and I can elicit no depressive or hypomanic/manic symptoms at this time. He denies any suicidal or homicidal ideation. He denies any audiovisual hallucinations I can elicit no delusional beliefs. He denies any side effects from medications. He has no physical complaints. Weighing the acute, chronic, and protective factors and based on the available evidence, I administrative law judge to a reasonable degree of medical certainty that the patient is at low imminent risk of harm to self or others from a mental illness as defined under the [place] act and his level of function is adequate for outpatient care. Consequently, the patient no longer meets criteria for involuntary psychiatric hospitalization. Given that the patient is requesting discharge from the inpatient psychiatric unit and given that he no longer meets criteria for involuntary psychiatric hospitalization, I must discharge him from the inpatient psychiatric unit today. Patient is to follow-up psychiatrically as arranged by counselor. Patient is also to follow-up with primary care. I counseled the patient regarding warning signs need to return to the psychiatric emergency room as part of a general safety plan. I counseled the patient to abstain from substances of abuse. Results Blood Pressure 119 / 59 Vital Signs Date Time Temp Pulse Resp B/P Pulse Ox O2 Delivery O2 Flow Rate FiO2 03/01/17 06:17 97.4 110 16 119/59 100 Laboratory Results Test 02/25/17 14:01 Valproic Acid (Depakene) Level 88 MCG/ML (50-100) Summary of Major Lab Results Ammonia level slightly elevated but no signs of hyperammonemic encephalopathy. Summary of Procedures None done Imaging Last Impressions Hand X-Ray 02/22/17 0000 Signed Impressions: Service Date/Time: Wednesday, February 22, 2017 11:18 - CONCLUSION: Unremarkable limited examination of the right hand. Jaden Trinh MD Pending results at discharge: No Medications # of Antipsychotic meds at D/C: 2 Appropriate >1 Antipsych meds?: 4 Approp Antipsych med options 1 - Minimum of three failed multiple trials of monotherapy. 2 - Documented plan to taper to monotherapy due to previous use of multiple meds OR cross-taper in progress at D/C. 3 - Documentation of augmentation of Clozapine. 4 - Justification other than those listed in allowable values 1-3, document here : Patient stabilized on this regimen. Could consider tapering medications to bring the patient back antipsychotic monotherapy on an outpatient basis as appropriate. Discharge Discharge Date: Mar 01, 2017 Discharge Diagnosis: (1) Schizoaffective disorder, bipolar type Diagnosis: Principal (stabilized) ICD Code: F25.0 (2) Polysubstance dependence Diagnosis: Secondary (counseled to quit) ICD Code: F19.20 GAF on discharge is 55 Mental Status Exam at Disch Patient is casually dressed. He is well groomed. He is awake and alert and oriented 3. No evidence of delirium or encephalopathy. No motoric abnormalities noted. Steady gait and station. Speech is within normal limits for rate, tone and volume. Language and fund of knowledge seem average. Mood is reportedly stable. Affect is full and reactive. Thought process linear. No loosening of associations. No evident delusions. Denies audiovisual hallucinations. Denies suicidal or homicidal ideation. Insight and judgment are fair at best. Pt Condition on Discharge: Stable Discharge Disposition: Discharge Home Discharge Instructions Diet Instructions: As Tolerated, No Restrictions Activities you can perform: Weight Bearing as Michelle Scheduled Appointment: as per counselor's notes New Orders: AMMONIA - 1 Week New Medications: Chlorpromazine (Chlorpromazine) 100 Mg Tab 200 MG PO DAILY@09,13,21 Mental Health Days 15 Ref 1 TAB Divalproex ER (Depakote ER) 500 Mg Lauren 2000 MG PO HS Mental Health Days 15 Ref 1 TAB Hydroxyzine HCl (Hydroxyzine HCl) 50 Mg Tab 100 MG PO Q6H PRN ANXIETY #30 Ref 1 TAB Quetiapine (Quetiapine) 300 Mg Tab 300 MG PO HS Mental Health Days 15 Ref 1 TAB Discharge Time <= 30 minutes Discharge/Advance Care Plan Health Problems: (1) Schizoaffective disorder, bipolar type (2) Polysubstance dependence Goals to promote your health * To prevent worsening of your condition and complications * To maintain your health at the optimal level Directions to meet your goals Take your medications as prescribed Follow your dietary instruction Follow activity as directed Keep your appointments as scheduled Take your immunizations and boosters as scheduled If your symptoms worsen call your PCP, if no PCP go to Urgent Care Center or Emergency Room For 14/06 questions related to your inpatient stay or results of tests pending at discharge, please contact Dr. Diego Portillo at Smoking is Dangerous to Your Health. Avoid second hand smoking Diego Portillo MD Mar 01, 2017 10:53
== END 2017-03-01 12:10 | disposition home or self-care (01) | DRG 885 ==
LOC: NED 02:24 → NEDA 08:42 → H270 10:20
PROVIDERS: ADMIT Psychiatry & Neurology Psychiatry; ATTEND Psychiatry & Neurology Psychiatry
DX: F25.0 Schizoaffective disorder, bipolar type (principal); F19.20 Other psychoactive substance dependence, uncomplicated; Z72.0 Tobacco use; Z79.899 Other long term (current) drug therapy
CPT/HCPCS: 73120; 80048; 80053; 80061; 80164; 80307; 82140; 83036; 85025; 93005; 99285; J1200; J1630; J2060; J3486; Q0163

== ENCOUNTER 2018-06-25 11:30 | Inpatient (IN) ==
--- NOTE | 2018-06-25 14:33 | ED ---
HPI General Chief Complaint: Psychiatric Symptoms Stated Complaint: Psych/VCPD Time Seen by Provider: 06/25/18 12:13 Source: patient and old records reviewed Mode of arrival: other (police) History of Present Illness HPI Narrative: Patient is a 33-year-old male presenting to the emergency department under [place] act for psychiatric evaluation. Apparently patient was in [facility] as an inpatient. He eloped from the unit he was on and went to the emergency room, he was acting erratically and yelling, he was placed under Guall[place] act at that time. He was medically cleared there and then brought here. Patient is not forthcoming with any information, he stated to me that he is here to save OUR lives. He does admit to using methamphetamines. He denies any psychiatric or medical history otherwise. He has no complaints of pain. Related Data Allergies Allergy/AdvReac Type Severity Reaction Status Date / Time benztropine [From Cogentin] Allergy Dry Mucus Verified 06/25/18 11:39 Membranes haloperidol [From Haldol] Allergy Dry Mucus Verified 06/25/18 11:39 Membranes Review of Systems Except as stated in HPI: all other systems reviewed are negative Psychiatric Reports behavioral changes, Reports irritability, Reports mood swings, Reports visual hallucinations and Reports hallucinations PMFSH History History Provided By: Patient Medical History Medical History Schizophrenia (Acute) Surgical History Surgical History No history of previous surgery (Acute) Social History Social History Recent Travel in [facility] within the Last 8 Weeks: No Recent Out of Country Travel within the Last 8 Weeks: No Exam Narrative Exam Narrative: GENERAL: Well-developed, well-nourished, alert male. Presenting in no acute distress. SKIN: Focused skin assessment warm/dry. HEAD: Atraumatic. Normocephalic. EYES: Pupils equal and round. No scleral icterus. No injection or drainage. ENT: No nasal bleeding or discharge. Mucous membranes pink and moist. NECK: Trachea midline. No JVD. CARDIOVASCULAR: Regular rate and rhythm. No murmur appreciated. RESPIRATORY: No accessory muscle use. Clear to auscultation. Breath sounds equal bilaterally. GASTROINTESTINAL: Abdomen soft, non-tender, nondistended. Hepatic and splenic margins not palpable. MUSCULOSKELETAL: No obvious deformities. No clubbing. No cyanosis. No edema. NEUROLOGICAL: Awake and alert. No obvious cranial nerve deficits. Motor grossly within normal limits. Normal speech. Psych Appearance: grossly normal Mental Status: mental status grossly normal Speech and Movement: agitated Mood: irritable mood Affect: irritable affect Attitude: guarded and avoids eye contact Course Initial Documented Vital Signs Temperature 97.8 F 06/25/18 11:39 Pulse Rate 82 06/25/18 11:39 Respiratory Rate 16 06/25/18 11:39 Blood Pressure 103/71 06/25/18 11:39 Pulse Oximetry 99 06/25/18 11:39 Last Documented Vital Signs Temperature 97.8 F 06/25/18 11:39 Pulse Rate 82 06/25/18 11:39 Respiratory Rate 16 06/25/18 11:39 Blood Pressure 103/71 06/25/18 11:39 Pulse Oximetry 99 06/25/18 11:39 Medical Decision Making MDM Narrative Medical decision making narrative: Patient is 33-year-old male presenting to emerge department under [place] act for psychiatric evaluation. Patient is guarded with answers, he is not eliciting much information. Patient was sent here with the Gu[place] act form in addition to discharge papers from [facility]. Discussed with PHOENIX Frazier and psych, she contacted [facility] and was told that patient eloped from the unit he was admitted to and was acting erratically in the emergency department, that is where he was subsequently Guallpa acted. Apparently he was medically cleared at that facility and transferred here by the police department. We had no knowledge of the transfer prior to the patient coming. At this time we are attempting to obtain medical records. Patient is currently refusing any further lab draws because he stated that he had his blood work done there. Patient's vital signs are stable. He is medically cleared at this time. Differential Diagnosis Differential Diagnosis: Mood disorder versus substance abuse versus psychosis versus metabolic abnormality versus other Discharge Plan Discharge Disposition Patient Disposition: 30 Still Patient Discharge Condition Condition: Stable Discharge Details Diagnosis: Medical clearance for psychiatric admission Physicians Team ED Provider: Charlie Byrne ED Midlevel Provider: Lena Arreguin Primary Care Provider: Primary Care Lyric Charles ED Status: Medically Cleared
[2018-06-26 08:40] LABS: Amphetamine Screen,Urine Pos (Neg); Barbiturate Screen,Urine Neg (Neg); Cannabinoid Screen,Urine Neg (Neg); Cocaine Screen,Urine Neg (Neg)
[2018-06-26 08:46] LABS: Opiate Screen,Urine Neg (Neg)
[2018-06-26 08:55] LABS: Baso % (Auto) 0.4 % (0.0-2.0); Eos # (Auto) 0.2 th/mm3 (0.0-0.4); Eos % (Auto) 4.2 % (0.0-4.0); Hematocrit 38.5 % (39.0-51.0); Hemoglobin 13.1 gm/dL (13.0-17.0); Lymph # (Auto) 2.1 th/mm3 (1.0-4.8); Lymph % (Auto) 39.7 % (9.0-44.0); Mean Corpuscular HGB Conc 33.9 % (32.0-36.0); Mean Corpuscular Hemoglobin 30.6 pg (27.0-34.0); Mean Corpuscular Volume 90.5 fL (80.0-100.0); Mean Platelet Volume 8.1 fL (7.0-11.0); Mono # (Auto) 0.7 th/mm3 (0.0-0.9); Mono % (Auto) 12.8 % (0.0-8.0); Neut # (Auto) 2.3 th/mm3 (1.8-7.7); Neut % (Auto) 42.9 % (16.0-70.0); Platelet Count 223 th/mm3 (150-450); Red Blood Count 4.26 mil/mm3 (4.50-5.90); Red Cell Distribution Width 14.3 % (11.6-17.2); White Blood Count 5.3 th/mm3 (4.0-11.0)
[2018-06-26 09:21] LABS: Albumin 3.8 g/dL (3.4-5.0); Anion Gap 8 meq/L (5-15); Aspartate Aminotransferase 55 U/L (15-37); Blood Urea Nitrogen 12 mg/dL (7-18); Calcium 8.8 mg/dL (8.5-10.1); Carbon Dioxide 26.9 meq/L (21.0-32.0); Chloride 106 meq/L (98-107); Glomerular Filtration Rate Greater Than 89 mL/min (>89); Glucose,Random 87 mg/dL (74-106); Potassium 3.7 meq/L (3.5-5.1); Sodium 141 meq/L (136-145)
[2018-06-26 09:34] LABS: Alanine Aminotransferase 80 U/L (12-78); Alkaline Phosphatase 48 U/L (45-117); Thyroid Stimulating Hormone 0.444 uIU/mL (0.358-3.740); Total Protein 7.4 g/dL (6.4-8.2)
--- NOTE | 2018-06-26 13:11 | ED ---
HPI - Psych - General Source: patient, old records reviewed Mode of arrival: other (police) Limitations: no limitations - History of Present Illness MD complaint: other (paranoid and uncooperative ) Duration: constant History of same: Yes Relieving factors: none Exacerbating factors: none Context: recent drug abuse - General Chief Complaint: Psychiatric Symptoms Stated Complaint: Psych/VCPD Time Seen by Provider: 06/25/18 12:13 - History of Present Illness HPI Narrative: Patient is a 33-year-old single, male, homeless, unemployed, with a psychiatric history of schizoaffective disorder, antisocial personality disorder , polysubstance abuse including amphetamines, cocaine, cannabis and alcohol. He presented to the emergency room at [facility] and was placed under a Guallpa act by the [facility]'s office. Guallpa act states," patient is highly agitated and confused at this time. His judgment is significantly impaired which could potentially be very harmful to his own well- being. Patient with erratic, psychotic behaviors, threatening others including staff." Patient states that he was just released from prison after 30 day sentence for grand theft. He states that he has been inconsistently taking his medications. He has been very uncooperative in the emergency department at [facility]. He is required several ETO's while he has been here. He is currently under restraints. He has also urinated all over the floor. Staff is working with him to released restraints and elicit his cooperation. Chart reviewed and discussed with nursing staff. Patient is in room J109 of the emergency department. He is currently yelling and screaming. He is redirectable if he is addressed. He is currently in 3 point restraints. He is alert and oriented to self. He is unable to tell me the date time or place. He is able to answer basic questions. He is currently very paranoid, delusional , and internally stimulated. Insight and judgment is poor. Mood is anxious and irritable. Thought process is illogical. Thought association is irrelevant and rambling. Social hx: Patient states that he has 2 children a 2-year-old daughter named Jenna and a 10-year-old daughter name Mallika. His mother lives in [place]. And his father lives in [place]. He states that he has attempted several times to hold down a job and is unable to obtain employment. He states he has been trying to find his mother in [place] but that he has been struggling since he got out of prison. Patient smokes 1 pack per day. Denies any alcohol. States that his drugs of choice are cocaine, amphetamines, marijuana, and alcohol. Psych/Med: He is currently under the care of Max Campos in the [facility]. He states that he takes Seroquel 400 twice daily and lithium 300 in the morning and 600 mg at night. He is allergic to Haldol and Cogentin. His last admission was in April 25, 2018. At that time he was placed on Invega Sustenna VALVERDE but he does not recall the date of his last injection. He is denies any medical history. He states that he did have some kind of debridement to his right foot. Patient is at moderate risk for decompensation. Will admit to inpatient [facility] psychiatric unit for further assessment and evaluation. Dx: Schizoaffective, antisocial personality, polysubstance abuse (Kaylee Cornell) - Related Data Home Medications Medication Instructions Recorded Confirmed quetiapine [Seroquel] 400 mg PO BID 06/26/18 06/26/18 Allergies Allergy/AdvReac Type Severity Reaction Status Date / Time benztropine [From Cogentin] Allergy Dry Mucus Verified 06/25/18 11:39 Membranes haloperidol [From Haldol] Allergy Dry Mucus Verified 06/25/18 11:39 Membranes Review of Systems All other systems reviewed negative except as stated in HPI COUNTS INCLUDE 234 BEDS AT THE [facility] - History History Provided By: Patient - Medical History Medical History: Medical History (Last Updated 06/26/18 @ 01:47 by Ailyn Chapman RN) Antisocial personality disorder Polysubstance dependence Schizophrenia - Surgical History Surgical History: Surgical History (Last Reviewed 06/25/18 @ 14:28 by ROSA Feliz) No history of previous surgery - Substance Use History Substance History: Active Abuse - Substance Use Type Crack/Cocaine Status: Active Amphetamines Status: Active Alcohol Status: Active Route Used: By Mouth - Travel History Recent Travel in the [facility] Within the Last 8 Weeks: No Recent Travel Out of the Country Within the Last 8 Weeks: No Psychiatric History - Psychiatric History Psychiatric Treatment History: History of Psychiatric Treatment, History Substance Abuse Treatment, History of Hospitalization in a Psychiatric Facility , History of Community Mental Health Treatment - Psychiatric History Patient is under the care of Max Campos in [place]. (Kaylee Cornell) Physical Exam - General Limitations: no limitations General appearance: alert - Head Head exam: atraumatic - Eye Eye exam: Present: normal appearance - ENT ENT exam: Present: normal exam - Neck Neck exam: Present: normal inspection Mental Status Examination Appearance: Disheveled Consciousness: Alert Orientation: Person, Situation Motor Activity: Normal gait Speech: Unremarkable Language: Adequate Fund of Knowledge: Adequate Attention and Concentration: Easily distracted Memory: Impaired Mood: Anxious, Irritable Affect: Irritable Thought Process & Associations: Disorganized Thought Content: Delusional Hallucination Type: None Delusion Type: Paranoid Suicidal Ideation: No Suicidal Plan: No Suicidal Intention: No Homicidal Ideation: No Homicidal Plan: No Homicidal Intention: No Insight: Poor Judgment: Poor Initial Documented Vital Signs Temperature 97.8 F 06/25/18 11:39 Pulse Rate 82 06/25/18 11:39 Respiratory Rate 16 06/25/18 11:39 Blood Pressure 103/71 06/25/18 11:39 Pulse Oximetry 99 06/25/18 11:39 Last Documented Vital Signs Temperature 96.6 F L 06/25/18 17:33 Pulse Rate 82 06/25/18 22:35 Respiratory Rate 20 06/25/18 22:35 Blood Pressure 123/82 06/25/18 17:33 Pulse Oximetry 100 06/25/18 22:35 [facility] - Psych - Diagnosis (1) Schizoaffective disorder Status: Acute (2) Antisocial personality disorder Status: Acute (3) Polysubstance abuse Status: Acute - Medical Records Attestation: I reviewed the patient's medical records. - Lab Data Attestation: I reviewed the patient's lab results. Result diagrams: 06/26/18 08:36 06/26/18 08:36 - [facility] Narrative Medical decision making narrative: Patient is a 33-year-old male who is well-known to [facility]. Patient reports that he was recently released from prison after 30 day sentence for grand theft. He states that he has been intermittently taking his medications. He admits to doing methamphetamines. He presents delusional, paranoid, and uncooperative. He has received multiple ETO's while in the emergency department. Patient is at moderate risk for decompensation. Patient is under a Guallpa act. Will admit to inpatient psychiatric services for further evaluation and treatment. (Kaylee Cornell) - Lab Data Lab Results 06/26/18 06/26/18 06/26/18 Range/Units 07:45 08:36 08:36 WBC 5.3 (4.0-11.0) th/mm3 RBC 4.26 L (4.50-5.90) mil/mm3 Hgb 13.1 (13.0-17.0) gm/dL Hct 38.5 L (39.0-51.0) % MCV 90.5 (80.0-100.0) fL MCH 30.6 (27.0-34.0) pg MCHC 33.9 (32.0-36.0) % RDW 14.3 (11.6-17.2) % Plt Count 223 (150-450) th/mm3 MPV 8.1 (7.0-11.0) fL Neut % (Auto) 42.9 (16.0-70.0) % Lymph % (Auto) 39.7 (9.0-44.0) % Adams % (Auto) 12.8 H (0.0-8.0) % Eos % (Auto) 4.2 H (0.0-4.0) % Baso % (Auto) 0.4 (0.0-2.0) % Neut # (Auto) 2.3 (1.8-7.7) th/mm3 Lymph # (Auto) 2.1 (1.0-4.8) th/mm3 Adams # (Auto) 0.7 (0.0-0.9) th/mm3 Eos # (Auto) 0.2 (0.0-0.4) th/mm3 Baso # (Auto) 0.0 (0.0-0.2) th/mm3 WBC Differential . Differential Comment Auto diff final Sodium 141 (136-145) meq/L Potassium 3.7 (3.5-5.1) meq/L Chloride 106 (98-107) meq/L Carbon Dioxide 26.9 (21.0-32.0) meq/L Anion Gap 8 (5-15) meq/L BUN 12 (7-18) mg/dL Creatinine 0.72 (0.60-1.30) mg/dL Estimated GFR Greater than 89 (>89) mL/min Random Glucose 87 (74-106) mg/dL Calcium 8.8 (8.5-10.1) mg/dL Total Bilirubin 0.4 (0.2-1.0) mg/dL AST 55 H (15-37) U/L ALT 80 H (12-78) U/L Alkaline Phosphatase 48 (45-117) U/L Total Protein 7.4 (6.4-8.2) g/dL Albumin 3.8 (3.4-5.0) g/dL TSH 0.444 (0.358-3.740) uIU/mL Urine Opiates Screen Neg (Neg) Ur Barbiturates Screen Neg (Neg) Ur Amphetamines Screen Pos H (Neg) U Benzodiazepines Scrn Neg (Neg) Urine Cocaine Screen Neg (Neg) U Cannabinoids Screen Neg (Neg) Serum Alcohol Less than 3 (0-5) mg/dL
[2018-06-26] MEDS ORDERED: Aluminum/Magnesium/Simethacone Susp 30 ML UDC PO PRN (13:13)
[2018-06-26] MEDS ORDERED: Acetaminophen 325 MG Tablet PO PRN (13:13)
[2018-06-26] MEDS ORDERED: Chlorpromazine Inj 50 MG/2 ML Ampule IM ONE ×2 (15:45→16:09)
[2018-06-26] MEDS ORDERED: Senna/Docusate Sodium 8.6/50 MG Tablet PO SCH (21:00)
--- NOTE | 2018-06-27 11:47 | P.HPPSY ---
Provisional Diagnosis Admission Date: June 26, 2018 13:12 [place] I.: 1. Polysubstance dependence 2. History of schizoaffective disorder, presently stable [place] II.: 1. Antisocial personality disorder Competence Certification of Person's Competence To Provide Express and Informed Consent I have personally examined Lobo Walton, a person being served at [facility] on, June 27, 2018 1143. Express and informed consent means consent voluntarily given in writing, by a competent person, after sufficient explanation and disclosure of the subject matter involved to enable the person to make a knowing and willful decision without any element of force, fraud, deceit, duress, or other form of constraint or coercion. This person is 18 years of age or older, is not now known to be incompetent to consent to treatment with a guardian advocate, and does not have a health care surrogate or proxy currently making medical treatment decisions. I have found this person to be one of the following: [X] Competent to provide express and informed consent, as defined above, for voluntary admission to this facility and is competent to provide express and informed consent for treatment. He/she has the consistent capacity to make well reasoned, willful, and knowing decisions concerning his or her medical or mental health treatment. The person fully and consistently understands the purpose of the admission for examination/placement and is fully capable of personally exercising all rights assured under [place] Incompetent to provide express and informed consent to voluntary admission, and this is incompetent to provide express and informed consent to treatment. The person must be transferred to involuntary status and a petition for a guardian advocate filed with the Circuit Court. [] Refusing to provide express and informed consent to voluntary admission but is competent to provide express and informed consent for treatment. The person must be discharged or transferred to involuntary status. Form shall be completed within 24 hours of a person's arrival at the receiving facility and filed in the clinical record of each person: 1. Admitted on a voluntary basis 2. Permitted to provide express and informed consent to his/her own treatment 3. Allowed to transfer from involuntary to voluntary status 4. Prior to permitting a person to consent to his or her own treatment after having been previously found incompetent to consent to treatment. History of Present Illness Capacity: Has capacity Chief Complaint: Guallpa Act History of Present Illness: Mr. Walton is a 33-year-old male with a history of polysubstance dependence and antisocial personality disorder as well as psychotic illness, namely schizoaffective disorder, who is presently admitted to the inpatient psychiatric unit under a Guallpa act. Patient was evaluated by the psychiatric nurse practitioner in the emergency department. Patient was apparently recently a medical inpatient at [facility] but eloped and was subsequently placed under a Guallpa Act and brought to [facility]. Documentation from [facility] reviewed. Patient's urine toxicology on presentation here was positive for amphetamines. Patient is well-known to the psychiatric service here from multiple previous ED visits as well as admissions. He was admitted under my care for example in March of this year. Patient seen and examined with counselor and nurse. Chart reviewed. I note that the patient's Guallpa Act will this afternoon. Case discussed with nursing staff. Patient was issuing blustery threats and growing agitated this morning and was medicated at my order with Zyprexa and Benadryl IM ETO. On my examination today, the patient is able to maintain composure for much of the interview. He insists on discharge from the inpatient unit today, telling me that he has to get to work. He tells me that he is "not suicidal or homicidal. " I can elicit no depressive or hypomanic/manic symptoms. He denies any audiovisual hallucinations. I can elicit no paranoia, no ideas of reference, no other delusional material. There is no evidence of impairment in reality construction. Antisocial personality traits are extremely prominent. He is actively seeking for Ambien and Ativan. He does become somewhat frustrated when he suspects that he might not be released from the hospital today, and he instructs me in an animated fashion to "get the fuck out" of his room. However , this is more antisocial bluster. The patient quickly calms and resumes eating in the day area. Patient complains of bilateral great toe pain, and I do note that he is missing the nail on the right great toe. He tells me that this is why he went into [facility] in the first place. No other physical complaints. No evident side effects from medication. Past psychiatric history: The patient has previous psychiatric diagnoses as noted above. He was reportedly receiving psychotropic medications when recently jailed but otherwise has been nonadherent with medications and has not been following up psychiatrically on an outpatient basis. No reported interval psychiatric admissions or suicide attempts. Family history: Unchanged from previous visits. Chemical dependency history: The patient admits to abuse of crystal meth. He tells me that this is his primary psychiatric medication and that "I need it to function." Social history: The patient reports that he has been living in the [facility] after his release from shelter on Wednesday. He tells me that he has no family support. 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 No reported access to guns or firearms. - Inpatient Certification Plans for Post Hospital Care: Other (AMA) Review of Systems All other systems reviewed negative except as stated in HPI [facility] - History History Provided By: Patient - Medical History Medical History: Medical History (Last Updated 06/26/18 @ 01:47 by Ailyn Chapman RN) Antisocial personality disorder Polysubstance dependence Schizophrenia - Surgical History Surgical History: Surgical History (Last Reviewed 06/25/18 @ 14:28 by ROSA Feliz) No history of previous surgery - Substance Use History Substance History: Active Abuse - Substance Use Type Crack/Cocaine Status: Active Amphetamines Status: Active Comment: Patient denies the use of any alcohol or drugs; however, toxicology reveals patient tested positive for amphetamines. Alcohol Status: Active Route Used: By Mouth - Travel History Recent Travel in the [facility] Within the Last 8 Weeks: No Recent Travel Out of the Country Within the Last 8 Weeks: No Quality Measures - Psychiatric History Psychological trauma history: No reported trauma history today - Patient Strengths Patient's strengths (minimum of 2): Attending to basic needs. Verbally fluent. Medications and Allergies Active Medications: Active Medications Acetaminophen (Tylenol) 650 mg PO Q4H PRN PRN Reason: Pain 1-5 or Temp >101F Al Hydrox/Mg Hydrox/Simethicone (Mag-Al Plus Susp Liq) 30 ml PO Q6H PRN PRN Reason: DYSPEPSIA Nicotine (Habitrol 21 Mg Patch.24 Hr) 1 patch T-DERMAL DAILY SANDEE Senna/Docusate Sodium (Irina-Colace) 1 tab PO BID SANDEE Last Admin: 06/27/18 04:01 Dose: Not Given Allergies Allergy/AdvReac Type Severity Reaction Status Date / Time benztropine [From Cogentin] Allergy Dry Mucus Verified 06/25/18 11:39 Membranes haloperidol [From Haldol] Allergy Dry Mucus Verified 06/25/18 11:39 Membranes Home Medications Medication Instructions Recorded Confirmed Type quetiapine [Seroquel] 400 mg PO BID 06/26/18 06/26/18 History Results - Labs CBC & Chem 7: 06/26/18 08:36 06/26/18 08:36 Labs: Laboratories reviewed. Mild transaminitis noted. Toxicology positive for amphetamines. Exam Vital signs: Vital Signs 06/26/18 15:13 06/26/18 19:40 Temperature 97.2 F L Pulse Rate 65 98 H Respiratory Rate 16 Blood Pressure 116/79 124/76 Pulse Oximetry 100 98 Intake & Output 06/26/18 06/27/18 06/27/18 18:59 06:59 18:59 Weight 71.9 kg Other: Weight On Admission 71.9 kg Narrative: Physical examination was completed by ED provider. On my examination today, the patient appears to be in no acute physical distress. No signs of intoxication or withdrawal noted. With the exception of toe lesion as noted above, no other signs of trauma or deformity. No motor abnormalities noted. Labs and vitals reviewed. Mental Status Examination Appearance: Appropriate Consciousness: Alert Orientation: x4 Motor Activity: Normal gait, Other (No motor abnormalities noted) Speech: Rapid (Baseline feature) Language: Adequate Fund of Knowledge: Adequate Attention and Concentration: Other (Fair) Memory: Unremarkable Mood: Appropriate (Calm with chronically poor frustration tolerance) Affect: Appropriate (Initially calm, somewhat irritable towards the end of our interview secondary to circumstances as noted above) Thought Process & Associations: Intact, Logical, Linear Thought Content: Appropriate Hallucination Type: None Delusion Type: None Suicidal Ideation: No Suicidal Plan: No Suicidal Intention: No Homicidal Ideation: No Homicidal Plan: No Homicidal Intention: No Insight: Poor (Chronic condition) Judgment: Poor (Chronic condition) Assessment and Plan - Assessment (1) Antisocial personality disorder Code(s): F60.2 - Antisocial personality disorder Status: Acute (2) Polysubstance dependence Code(s): F19.20 - Other psychoactive substance dependence, uncomplicated Status: Acute (3) History of schizoaffective disorder Code(s): Z86.59 - Personal history of other mental and behavioral disorders Status: Acute - Plan Plan: 33-year-old male with psychiatric history as detailed above who is presently admitted under a Guallpa act. On my examination today, the patient is insisting on discharge from the inpatient unit today. He denies any suicidal or homicidal ideation, intent or plan. There is no evidence of unstable mental illness as defined under the Guallpa act in this patient at this time. In particular, although the patient has a chart history of psychotic illness, there is no evidence of decompensated psychosis in this patient at this time. Patient's current presentation is judged to be wholly secondary to antisocial personality and substance use issues and hence the patient does not meet criteria for involuntary psychiatric hospitalization under the Guallpa act. Patient is chronically unpredictable as a consequence of his antisocial personality and substance use issues, but neither of these factors would be ameliorated by ongoing admission to the inpatient psychiatric unit. I have offered to retain the patient for a period of observation on the inpatient unit , but the patient has declined, and I have no basis to retain him over his objection at this time. I will therefore discharge him AGAINST MEDICAL ADVICE. Psychiatric follow-up as arranged by counselor. Patient is also to follow up with primary care. Patient to return to psychiatric emergency room for concerning psychiatric symptoms as part of a general safety plan. No medication prescriptions provided on discharge. This note serves also as my discharge summary. Justification for Continued Inpatient Stay: N/A. D/c today.
--- NOTE | 2018-06-28 07:31 | ECG ---
Date Performed: 06/27/2018 Time Performed: 10:30:01 PTAGE: 33 years EKG: Sinus rhythm NORMAL ECG PREVIOUS TRACING : 02/25/2017 11.16 DOCTOR: Tayler Garrett Interpretating Date/Time 06/28/2018 07:29:42
== END 2018-06-27 13:50 | disposition left against medical advice (07) ==
LOC: NEPJ 11:30 → NEDA 06-26 13:12 → H270 06-26 17:58
PROVIDERS: ADMIT Psychiatry & Neurology Psychiatry; ATTEND Psychiatry & Neurology Psychiatry